=== PATIENT | male | born 1975 | race Caucasian/White ===

== ENCOUNTER 2017-06-25 16:40 | Emergency (ER) | payer MEDICAID ==
[~2017-06-25] VITALS: Ht 172.7 cm; Wt 81.6 kg
[2017-06-25 16:44] VITALS: Ht 172.7 cm; Wt 81.6 kg
[2017-06-25 18:49] VITALS: BP 136/78
== END 2017-06-25 18:49 | disposition home or self-care (01) ==
LOC: ED 16:40
DX: T78.3XXA Angioneurotic edema, initial encounter (principal); Y92.89 Other specified places as the place of occurrence of the external cause
CPT/HCPCS: 82962; J2930; Q0163

== ENCOUNTER 2017-06-26 22:02 | Emergency (ER) | payer MEDICAID ==
[2017-06-27] MEDS ORDERED: METFORMIN HCL1000 MG PO (09:51)
== END 2017-06-26 23:16 | disposition left against medical advice (07) ==
LOC: ED 22:02
DX: Z53.21 Procedure and treatment not carried out due to patient leaving prior to being seen by health care provider (principal)

== ENCOUNTER 2017-06-27 06:01 | Inpatient (IN) | payer MEDICAID ==
[~2017-06-27] VITALS: Ht 172.7 cm; Wt 81.6 kg
[2017-06-27 07:20] LABS: PLATELET COUNT 263 x10^3mcL (130-400)
[2017-06-27 07:21] LABS: BASOPHIL % 0 % (0-2)
[2017-06-27 07:32] LABS: CALCIUM 9.2 mg/dL (8.5-10.1); CARBON DIOXIDE 22.8 mmol/L (21-32); CHLORIDE SERUM 99 mmol/L (98-107); CREATININE SERUM 0.9 mg/dL (0.7-1.3); GFR1 > 60 mL/min; GLUCOSE SERUM 276 mg/dL (74-106); POTASSIUM SERUM 4.3 mmol/L (3.5-5.1); SODIUM SERUM 136 mmol/L (136-145)
[2017-06-27 07:39] LABS: ALBUMIN 3.9 g/dL (3.4-5.0); ALKALINE PHOSPHATASE 80 U/L (46-116); ALT/SGPT 27 U/L (16-63); AST/SGOT 16 U/L (15-37); BILIRUBIN TOTAL 0.45 mg/dL (0.20-1.00); TOTAL PROTEIN, SERUM 7.9 g/dL (6.4-8.2)
[2017-06-27 09:39] VITALS: BP 120/71
[2017-06-27 09:42] VITALS: Ht 172.7 cm; Wt 81.6 kg
[2017-06-27] MEDS ORDERED: METFORMIN HCL1000 MG PO (09:51)
[2017-06-27 09:53] LABS: CHOLESTEROL/HDL RATIO 4.3; MAGNESIUM 2.3 mg/dL (1.8-2.4); PHOSPHOROUS 3.9 mg/dL (2.5-4.9)
[2017-06-27 10:08] LABS: T3 TOTAL 0.73 ng/mL
[2017-06-27 10:21] LABS: FREE T4 1.17 ng/dL (0.76-1.46); FREE THYROXINE INDEX 2.8 ug/dL (1.4-4.5); T4(THYROXINE) 8.4 ug/dL (4.7-13.3)
[2017-06-27 13:36] VITALS: BP 118/79
[2017-06-27 16:59] VITALS: BP 108/64
[2017-06-27 19:52] LABS: microscopic required? NO
[2017-06-27 19:57] LABS: UA SPECIFIC GRAVITY 1.015 (1.005-1.035); urine erythrocyte NEGATIVE (NEGATIVE)
[2017-06-27 20:05] LABS: AMPHETAMINE QUAL UR NONE DETECTED (NEG <=1000)
[2017-06-27 20:54] VITALS: BP 111/68
[2017-06-28 05:23] VITALS: BP 101/62
[2017-06-28 07:17] LABS: BASOPHIL % 0.5 % (0-2); PLATELET COUNT 235 x10^3mcL (130-400); RED CELL DISTRIBUTION WIDTH 13.2 % (11.5-14.5)
[2017-06-28 07:31] LABS: CALCIUM 8.9 mg/dL (8.5-10.1); CARBON DIOXIDE 26.7 mmol/L (21-32); CHLORIDE SERUM 104 mmol/L (98-107); CREATININE SERUM 0.8 mg/dL (0.7-1.3); GFR1 > 60 mL/min; GLUCOSE SERUM 203 mg/dL (74-106); POTASSIUM SERUM 4.3 mmol/L (3.5-5.1); SODIUM SERUM 140 mmol/L (136-145)
[2017-06-28 09:32] VITALS: BP 107/71
[2017-06-28 12:52] VITALS: BP 104/72
[2017-06-28 16:53] VITALS: BP 140/84
[2017-06-28 20:31] VITALS: BP 129/72
[2017-06-29 05:27] VITALS: BP 121/82
[2017-06-29 06:22] LABS: CALCIUM 8.6 mg/dL (8.5-10.1); CARBON DIOXIDE 26.4 mmol/L (21-32); CHLORIDE SERUM 103 mmol/L (98-107); CREATININE SERUM 0.8 mg/dL (0.7-1.3); GFR1 > 60 mL/min; GLUCOSE SERUM 218 mg/dL (74-106); POTASSIUM SERUM 4.2 mmol/L (3.5-5.1); SODIUM SERUM 139 mmol/L (136-145)
[2017-06-29 06:36] LABS: BASOPHIL % 0.8 % (0-2); PLATELET COUNT 248 x10^3mcL (130-400); RED CELL DISTRIBUTION WIDTH 12.9 % (11.5-14.5)
[2017-06-29 08:00] VITALS: BP 121/70
[2017-06-29 08:57] VITALS: BP 121/70
[2017-06-29] MEDS ORDERED: CLEOCIN HCL300 MG PO (11:04)
[2017-06-29] MEDS ORDERED: BLOOD GLUCOSE1 EAC3 MC (11:31)
[2017-06-29] MEDS ORDERED: BD ULTRA-FINE1 EAC4 MC (11:32)
[2017-06-29] MEDS ORDERED: TEST STRIPS1 EACH MC (11:32)
== END 2017-06-29 12:47 | disposition home or self-care (01) | DRG 383 ==
LOC: ED 06:01 → MU 08:08 → DU 08:08 → MU 06-28 08:50
PROVIDERS: Emergency Medicine; Family Medicine
DX: L03.211 Cellulitis of face (principal); N17.0 Acute kidney failure with tubular necrosis; E11.65 Type 2 diabetes mellitus with hyperglycemia; E78.5 Hyperlipidemia, unspecified; Z53.29 Procedure and treatment not carried out because of patient's decision for other reasons; E66.3 Overweight; Z83.3 Family history of diabetes mellitus; Z79.84 Long term (current) use of oral hypoglycemic drugs; Z72.89 Other problems related to lifestyle; Z68.27 Body mass index [BMI] 27.0-27.9, adult
CPT/HCPCS: 82962; 83880; 84439; J0696; J3490; J7030; J7050; Q0092; Q9967